=== PATIENT | male | born 1960 | race Caucasian/White ===

== ENCOUNTER 2017-10-11 22:12 | Emergency (ER) | payer OTHER ==
[2017-10-11] MEDS: SOD CHLORIDE 0.9% 500 ML IV (22:43)
[2017-10-11 22:45] LABS: ADD MAN DIFF? NO
[2017-10-11] MEDS: ADENOSINE 6 MG INJ IV ×2 (22:45→22:47)
[2017-10-11 22:47] LABS: BASOPHILS % 0.3 % (0.0-2.0); EOSINOPHILS # 0.1 10^3/ul (0.0-0.5); EOSINOPHILS % 1.1 % (0.0-7.0); HEMOGLOBIN 15.7 g/dl (14.0-18.0); LYMPHOCYTES % 10.7 % (15.0-51.0); MEAN CORPUSCULAR HEMOGLOBIN 30.6 pg (29.0-33.0); MEAN CORPUSCULAR HGB CONC 34.1 g/dl (32.0-37.0); MEAN CORPUSCULAR VOLUME 89.7 fl (82.0-101.0); MEAN PLATELET VOLUME 9.3 fl (7.4-10.4); MONOCYTE # 0.6 10^3/ul (0.3-0.9); MONOCYTES % 6.7 % (0.0-11.0); NEUTROPHIL # 7.2 10^3/ul (1.6-7.5); NEUTROPHILS % 80.9 % (39.0-77.0); PLATELET COUNT 160 10^3/UL (140-415); RED BLOOD COUNT 5.13 10^6/ul (4.70-6.10); RED CELL DISTRIBUTION WIDTH 12.2 % (11.5-14.5)
[2017-10-11 22:47] LABS: WHITE BLOOD COUNT 8.9 10^3/ul (4.8-10.8)
[2017-10-11] MEDS ORDERED: PROPOFOL 100 ML (22:51)
[2017-10-11 23:04] LABS: ANION GAP 16 (8-16); BLOOD UREA NITROGEN 18 mg/dl (7-20); CALCIUM 8.6 mg/dl (8.4-10.2); CARBON DIOXIDE 21 mmol/L (21-31); CHLORIDE 106 mmol/L (97-110); CREATININE 1.05 mg/dl (0.61-1.24); GLUCOSE 230 mg/dl (70-220); POTASSIUM 4.3 mmol/L (3.5-5.1); SODIUM 139 mmol/L (135-144)
[2017-10-11] MEDS: PROPOFOL 200 MG INJ IV ×2 (23:05→23:06)
[2017-10-11 23:16] LABS: B-TYPE NATRIURETIC PEPTIDE 108 PG/ML (0-125)
[2017-10-11 23:21] LABS: TROPONIN-I < 0.012 ng/ml (0.000-0.120)
[2017-10-11] MEDS: SOD CHLORIDE 0.9% 1,000 ML IV (23:59)
[2017-10-11] MEDS: ASPIRIN 325 MG TAB PO (23:59)
== END 2017-10-12 01:56 | disposition home or self-care (01) ==
LOC: E/R 10-12 01:56
DX: I47.1 Supraventricular tachycardia (principal); E11.65 Type 2 diabetes mellitus with hyperglycemia; I10 Essential (primary) hypertension; Z98.61 Coronary angioplasty status
CPT/HCPCS: 36415; 71045; 80048; 83880; 84484; 85025; 93005; 96374; 99291-25

== ENCOUNTER 2018-02-14 21:48 | Emergency (ER) | payer OTHER ==
[2018-02-14 22:30] LABS: ADD MAN DIFF? NO
[2018-02-14 22:33] LABS: BASOPHILS % 0.4 % (0.0-2.0); EOSINOPHILS # 0.2 10^3/ul (0.0-0.5); EOSINOPHILS % 2.4 % (0.0-7.0); HEMATOCRIT 46.3 % (42.0-52.0); HEMOGLOBIN 15.6 g/dl (14.0-18.0); LYMPHOCYTES # 1.2 10^3/ul (0.8-2.9); LYMPHOCYTES % 13.4 % (15.0-51.0); MEAN CORPUSCULAR HEMOGLOBIN 29.8 pg (29.0-33.0); MEAN CORPUSCULAR HGB CONC 33.7 g/dl (32.0-37.0); MEAN CORPUSCULAR VOLUME 88.4 fl (82.0-101.0); MEAN PLATELET VOLUME 9.5 fl (7.4-10.4); MONOCYTE # 0.7 10^3/ul (0.3-0.9); MONOCYTES % 7.8 % (0.0-11.0); NEUTROPHIL # 6.9 10^3/ul (1.6-7.5); NEUTROPHILS % 75.8 % (39.0-77.0); PLATELET COUNT 173 10^3/UL (140-415); RED BLOOD COUNT 5.24 10^6/ul (4.70-6.10); RED CELL DISTRIBUTION WIDTH 12.4 % (11.5-14.5)
[2018-02-14 22:33] LABS: WHITE BLOOD COUNT 9.1 10^3/ul (4.8-10.8)
[2018-02-14 22:50] LABS: ANION GAP 15 (8-16); BLOOD UREA NITROGEN 23 mg/dl (7-20); CALCIUM 9.3 mg/dl (8.4-10.2); CARBON DIOXIDE 25 mmol/L (21-31); CHLORIDE 104 mmol/L (97-110); CREATININE 1.14 mg/dl (0.61-1.24); GLUCOSE 225 mg/dl (70-220); MAGNESIUM 1.8 mg/dl (1.7-2.5); POTASSIUM 3.8 mmol/L (3.5-5.1); SODIUM 140 mmol/L (135-144)
[2018-02-14] MEDS ORDERED: PROPOFOL 100 ML (22:52)
[2018-02-14 22:54] LABS: INR 1.21; PROTIME 15.5 Sec (11.9-14.9); PT RATIO 1.2
[2018-02-14 23:02] LABS: B-TYPE NATRIURETIC PEPTIDE 133 PG/ML (0-125); TROPONIN-I < 0.012 ng/ml (0.000-0.120)
== END 2018-02-15 01:08 | disposition left against medical advice (07) ==
LOC: E/R 02-15 01:08
DX: R00.0 Tachycardia, unspecified (principal); I10 Essential (primary) hypertension; Z79.01 Long term (current) use of anticoagulants; Z98.61 Coronary angioplasty status
CPT/HCPCS: 36415; 71045; 80048; 83735; 83880; 84443; 84484; 85025; 85610; 85730; 93005; 99291-25

== ENCOUNTER 2018-05-28 22:13 | Emergency (ER) | payer OTHER ==
[~2018-05-28 22:13] MED LIST: PROPOFOL 200 MG INJ
[2018-05-28 22:50] LABS: ADD MAN DIFF? NO
[2018-05-28 22:53] LABS: WHITE BLOOD COUNT 10.8 10^3/ul (4.8-10.8)
[2018-05-28 22:53] LABS: BASOPHIL # 0.1 10^3/ul (0.0-0.1); BASOPHILS % 0.5 % (0.0-2.0); EOSINOPHILS # 0.2 10^3/ul (0.0-0.5); EOSINOPHILS % 1.6 % (0.0-7.0); HEMATOCRIT 44.3 % (42.0-52.0); HEMOGLOBIN 14.7 g/dl (14.0-18.0); LYMPHOCYTES # 1.4 10^3/ul (0.8-2.9); LYMPHOCYTES % 12.6 % (15.0-51.0); MEAN CORPUSCULAR HEMOGLOBIN 29.8 pg (29.0-33.0); MEAN CORPUSCULAR HGB CONC 33.2 g/dl (32.0-37.0); MEAN CORPUSCULAR VOLUME 89.7 fl (82.0-101.0); MEAN PLATELET VOLUME 9.4 fl (7.4-10.4); MONOCYTE # 0.8 10^3/ul (0.3-0.9); MONOCYTES % 7.2 % (0.0-11.0); NEUTROPHIL # 8.4 10^3/ul (1.6-7.5); NEUTROPHILS % 77.7 % (39.0-77.0); PLATELET COUNT 192 10^3/UL (140-415); RED BLOOD COUNT 4.94 10^6/ul (4.70-6.10); RED CELL DISTRIBUTION WIDTH 12.5 % (11.5-14.5)
[2018-05-28] MEDS: SOD CHLORIDE 0.9% 500 ML IV (22:56)
[2018-05-28] MEDS: PROPOFOL 200 MG INJ IV (23:06)
[2018-05-28 23:09] LABS: ALANINE AMINOTRANSFERASE 41 IU/L (13-69); ALBUMIN 4.3 g/dl (3.3-4.9); ALKALINE PHOSPHATASE 92 IU/L (42-121); ANION GAP 10 (5-13); ASPARTATE AMINO TRANSFERASE 39 IU/L (15-46); BILIRUBIN,INDIRECT 0.4 mg/dl (0-1.1); BILIRUBIN,TOTAL 0.4 mg/dl (0.2-1.3); BLOOD UREA NITROGEN 37 mg/dl (7-20); CALCIUM 9.2 mg/dl (8.4-10.2); CARBON DIOXIDE 22 mmol/L (21-31); CHLORIDE 105 mmol/L (97-110); CREATININE 1.52 mg/dl (0.61-1.24); Estimated GFR 48 mL/min (>60); GLUCOSE 148 mg/dl (70-220); POTASSIUM 4.8 mmol/L (3.5-5.1); SODIUM 137 mmol/L (135-144); TOTAL PROTEIN 7.6 g/dl (6.1-8.1)
[2018-05-28 23:21] LABS: B-TYPE NATRIURETIC PEPTIDE 242 PG/ML (0-125); TROPONIN-I 0.025 ng/ml (0.000-0.120)
== END 2018-05-29 04:26 | disposition left against medical advice (07) ==
LOC: E/R 22:13
DX: R00.0 Tachycardia, unspecified (principal); I10 Essential (primary) hypertension; Z79.01 Long term (current) use of anticoagulants; Z87.891 Personal history of nicotine dependence; Z98.61 Coronary angioplasty status
CPT/HCPCS: 36415; 71045; 80053; 83880; 84484; 85025; 92960; 93005; 94770; 99285-25; 99291-25

== ENCOUNTER 2018-06-20 19:47 | Emergency (ER) | payer OTHER ==
[2018-06-20] MEDS: KETOROLAC 30 MG INJ IM (21:30)
== END 2018-06-21 00:14 | disposition home or self-care (01) ==
LOC: E/R 06-21 00:14
DX: S20.211A Contusion of right front wall of thorax, initial encounter (principal); S22.31XA Fracture of one rib, right side, initial encounter for closed fracture; I10 Essential (primary) hypertension; W18.39XA Other fall on same level, initial encounter; Y92.9 Unspecified place or not applicable
CPT/HCPCS: 71250; 74176; 93005; 96372; 99285-25